=== PATIENT | female | born 1985 | race Caucasian/White ===

== ENCOUNTER 2017-08-27 20:50 | Emergency (ER) | payer OTHER, SELFPAY ==
[2017-08-27 20:51] VITALS: BP 120/71; PULSE 117; RESP 17; TEMP 36.9; O2SAT 100; BMI 19.0
[2017-08-27] MEDS: 0.9% Normal Saline 1,000 ML 1000 ML IV (21:32)
[2017-08-27] MEDS: Metoclopramide 10 MG/2 ML Vial IV (21:32)
[2017-08-27 21:45] LABS: Bacteria 0 SEEN /hpf (None Seen); Mucous, Urine 0 SEEN /hpf (<or=2+)
[2017-08-27 21:51] LABS: Color, Urine Yellow (Yellow); Glucose, Dipstick Normal (Normal); Leukocyte Esterase-Dipstick 25 /ul (Negative); Nitrite-Dipstick Negative (Negative); Occult Blood-Urine 25 /ul (Negative); Protein-Dipstick 30 mg/dl (Negative); Specific Gravity, Urine 1.025 (1.002-1.030); Urine Clarity Sl. Cloudy (Clear); Urine Urobilinogen 1 mg/dl (Normal)
[2017-08-27 21:53] LABS: Urine Bilirubin Dipstick 1 mg/dL (Negative)
[2017-08-27 21:56] LABS: Ketone-Dipstick 150 mg/dl (Negative)
[2017-08-27 22:00] LABS: Internal QC Validated? YES +Cl - CLEAR BKGD; Pregnancy, Urine Negative Negative
[2017-08-27 22:07] LABS: Red Blood Cells-Urine 0-5 SEEN /hpf (0-5); Squamous Epithelial Cells - UA 10-25 SEEN /hpf (5-10); White Blood Cells 0-5 SEEN /hpf (0-5)
[2017-08-27] MEDS: 0.9% Normal Saline 1,000 ML 999 ML IV (23:29)
[2017-08-27] MEDS: proCHLORPERazine 10 MG/2 ML Vial IV (23:29)
[2017-08-27 23:30] VITALS: PULSE 108; RESP 18; O2SAT 96
--- NOTE | 2017-08-28 00:02 | ED.DCSUM_ITS ---
- ER Visit Summary Date of Service: 08/27/17 Chief Complaint: Nausea, vomiting, and diarrhea. History of Present Illness: The patient is a 31 F presenting with nausea, vomiting, and diarrhea since this afternoon. She has had countless episodes of each. Both nonbloody. No abdominal pain. No recent travel. No fever. She does have sick contacts and a coworker who had the same symptoms today and ended up having to go to hospital for IV fluids. Physical Examination: Mucous membranes are dry. She is mildly tachycardic. Abdomen is soft and nontender. No rash. Strong pulses in all extremities. Test Results: HCG negative. Urinalysis positive for ketones. Emergency Department Course and Treatment: He was given a liter of IV fluids and gland. She then vomited again. She was then given IV fluids and Compazine. This worked well for her. Her nausea resolved. She had no further vomiting. She was able to tolerate p.o. She was sent home with a Zofran home pack and given a prescription for Zofran as well. She will come back if she has any recurrence of symptoms. On repeat abdominal examination, her abdomen remained soft and nontender. Treatment Plan: Oral antiemetics at home, come back if develops abdominal pain or unable to keep fluids down. Disposition: Home stable condition Impression: Initial encounter nausea, vomiting, diarrhea This note was generated with [employer] dictation software. It may contain incorrect words, spelling, and punctuation that were not noted in review of the chart prior to signing ED Disposition - Plan for ED Patient: Chief Complaint: Nausea/Vomiting/Diarrhea Instructions: ED Vomiting Diarrhea Nonspecific Ad Prescriptions: Ondansetron [Zofran Odt] 4 mg PO Q8H PRN PRN #10 tablet PRN Reason: Nausea Referrals: Marianne Camara MD [Primary Care Provider] -
[2017-08-28] MEDS: Ondansetron ODT 4 MG Tablet PO (00:32)
--- NOTE | 2017-08-28 00:37 | ED.RN ---
REVIEWED D/C INSTRUCTIONS, FOLLOW UP CARE, PRESCRIPTION, AND S/S THAT WOULD WARRANT A RETURN TO THE ED WITH PT. PT VERBALIZED AN UNDERSTANDING AND DENIES FURTHER QUESTIONS FOR THIS RN. PT SKIN P/W/D, RESP EVEN AND UNLABORED, PT A&O X 3, NO DISTRESS NOTED. PT AMBULATED OUT OF ED, GAIT STEADY.
[2017-08-28 00:38] VITALS: BP 109/75; PULSE 106; RESP 16; O2SAT 96
== END 2017-08-28 00:39 | disposition home or self-care (01) ==
PROVIDERS: Emergency Provider Emergency Medicine; Family Provider Internal Medicine; PCP Internal Medicine
DX: R11.2 Nausea with vomiting, unspecified (principal); R19.7 Diarrhea, unspecified; E86.0 Dehydration
CPT/HCPCS: 81001; 81025; 96361; 96374; 96375; 99283; J7030; A4216